=== PATIENT | male | born 1960 ===

== ENCOUNTER 2021-10-22 22:04 | Emergency (ER) | payer OTHER ==
[2021-10-22 22:48] VITALS: BP 102/69; PULSE 80; RESP 20; TEMP 97.3; BMI 22.4
[2021-10-22] MEDS ORDERED: ACETAMINOPHEN 500 MG TABLET (FP) PO ONE (23:56)
[2021-10-23] MEDS ORDERED: ACETAMINOPHEN 325 MG TABLET (FP) ONE (00:01)
== END 2021-10-23 01:21 | disposition home or self-care (01) ==
LOC: JER 22:04
DX: M25.571 Pain in right ankle and joints of right foot (principal)
CPT/HCPCS: 73610-TC-RT-FY; 73630-TC-RT-FY; 99283-25

== ENCOUNTER 2021-10-23 06:58 | Emergency (ER) | payer OTHER ==
[2021-10-23 08:30] VITALS: BP 142/79; PULSE 93; RESP 18; TEMP 98.3; BMI 23.0
[2021-10-23] MEDS ORDERED: ACETAMINOPHEN 500 MG TABLET (FP) PO ONE (09:32)
[2021-10-23] MEDS ORDERED: LIDOCAINE 5% TOPICAL PATCH TP ONE (09:32)
[2021-10-23] MEDS ORDERED: ACETAMINOPHEN 325 MG TABLET (FP) ONE (09:35)
[2021-10-23] MEDS ORDERED: LIDOCAINE 5% TOPICAL PATCH ONE (09:35)
[2021-10-23] MEDS ORDERED: LIDOCAINE PATCH REMOVAL MC SCH (22:00)
== END 2021-10-23 10:23 | disposition home or self-care (01) ==
LOC: JER 06:58
DX: M25.561 Pain in right knee (principal); M25.571 Pain in right ankle and joints of right foot
CPT/HCPCS: 99283-25

== ENCOUNTER 2022-03-07 21:35 | Inpatient (IN) | payer OTHER ==
[2022-03-07] MEDS ORDERED: DEXAMETHASONE SOD PHOSPHATE 10 MG/1 ML VIAL IVPUSH ONE (21:43)
[2022-03-07] MEDS ORDERED: ALBUTEROL SO4 2.5/IPRATROPIUM 0.5 INH SOL 3 ML VIAL.NEB. NEB SCH (21:45)
[2022-03-07] MEDS ORDERED: HALOPERIDOL LACTATE 5 MG/ML IM ONE ×2 (21:53→23:05)
[2022-03-07] MEDS ORDERED: LORazepam 2 MG/ML SDV VIAL IM ONE (22:25)
[2022-03-07] MEDS ORDERED: LORazepam 2 MG/ML SDV VIAL IVPUSH ONE (22:30)
[2022-03-07] MEDS ORDERED: ROCURONIUM BROMIDE 50 MG/5 ML SYRINGE ONE (22:36)
[2022-03-07] MEDS ORDERED: ETOMIDATE 20 MG/10 ML VIAL IVPUSH ONE (22:37)
[2022-03-07 22:56] LABS: BASO % 1.2 % (0-2.0); EOS % 0.1 % (0-4.5); HEMOGLOBIN 14.7 GM/dL (11.7-16.9); LYMPH % 2.9 % (8-40); MCH 30.1 pg (25.7-33.7); MCHC 32.6 g/dl (32.0-35.9); MEAN CELL VOLUME 92.3 fl (80-96); MONO % 7.2 % (3.8-10.2); NEUT % 88.6 % (42.8-82.8); PLATELET COUNT 344 10^3/uL (134-434); RBC 4.88 M/mm3 (4.00-5.60); RDW 14.5 % (11.9-15.9); WHITE BLOOD COUNT 18.2 K/mm3 (4.0-10.0)
[2022-03-07] MEDS: PROPOFOL 1,000,000 MCG/100 ML VIAL IVPB SCH (23:03)
[2022-03-07 23:07] LABS: INR 1.09 (0.83-1.09); PROTHROMBIN TIME (PATIENT) 12.6 SEC (9.7-13.0)
[2022-03-07] MEDS: FENTANYL NS IVPB 500 MCG/100 ML BAG IVPB SCH (23:09)
[2022-03-07 23:10] LABS: ACTIVATED PTT 33.7 SECONDS (25.2-36.5)
[2022-03-07 23:15] LABS: CHLORIDE 105 mmol/L (98-107); SODIUM 144 mmol/L (136-145)
[2022-03-07 23:17] LABS: CALCIUM 9.1 mg/dL (8.5-10.1)
[2022-03-07 23:18] LABS: ALBUMIN 3.5 g/dl (3.4-5.0); ANION GAP 12 MMOL/L (8-16); BLOOD UREA NITROGEN 25.7 mg/dL (7-18); CO2 26 mmol/L (21-32); GLUCOSE,RANDOM 141 mg/dL (74-106)
[2022-03-07] MEDS ORDERED: FUROSEMIDE 40 MG/4 ML INJECTABLE VIAL IVPUSH ONE (23:19)
[2022-03-07 23:21] LABS: SGOT/AST 21 U/L (15-37); SGPT/ALT 34 U/L (13-61)
[2022-03-07 23:23] LABS: BILIRUBIN,TOTAL 0.9 mg/dL (0.2-1)
[2022-03-07 23:24] LABS: ALK PHOS 78 U/L (45-117)
[2022-03-07] MEDS ORDERED: FUROSEMIDE 40 MG/4 ML INJECTABLE VIAL ONE (23:25)
[2022-03-07] MEDS ORDERED: ACETAMINOPHEN 1000 MG/100 ML BAG IVPB ONE (23:29)
[2022-03-07] MEDS ORDERED: ACETAMINOPHEN INJECTION 100 ML IVPB ONE (23:34)
[2022-03-07 23:37] LABS: ARTERIAL BLD GAS O2 SATURATION 86.1 % (95-98); ARTERIAL BLOOD GAS BASE EXCESS -3.8 mmol/L (-2-2); ARTERIAL BLOOD GAS PO2 69.1 mmHg (80-100)
[2022-03-07 23:42] LABS: ALLENS TEST POSITIVE
[2022-03-07 23:43] LABS: VENT MODE V-A/C; VENT RATE 16
[2022-03-07 23:44] LABS: ARTERIAL BLOOD GAS pH 7.113 (7.350-7.450)
[2022-03-07] MEDS ORDERED: NITROGLYCERIN 2% OINTMENT - 1GM PACKET TD ONE (23:52)
[2022-03-08 00:03] LABS: EPI CELLS 1 /uL (0-25.1); HYALINE CASTS 0 /uL (0-3.1); URINE APPEARANCE CLEAR; URINE BACTERIA 2 /uL (0-1359); URINE BILIRUBIN NEGATIVE (NEGATIVE); URINE COLOR YELLOW; URINE GLUCOSE (UA) NEGATIVE (NEGATIVE); URINE KETONE NEGATIVE (NEGATIVE); URINE LEUK ESTERASE NEGATIVE (NEGATIVE); URINE NITRITE NEGATIVE (NEGATIVE); URINE PROTEIN 2+ (NEGATIVE); URINE RBC 12 /uL (0-23.9); URINE UROBILINOGEN 0.2 mg/dL (0.2-1.0); URINE WBC 6 /uL (0-25.8)
[2022-03-08] MEDS ORDERED: NITROGLYCERIN 2% OINTMENT - 1GM PACKET TD ONE (00:04)
[2022-03-08 02:13] LABS: ARTERIAL BLD GAS O2 SATURATION 98.9 % (95-98); ARTERIAL BLOOD GAS BASE EXCESS -4.4 mmol/L (-2-2); ARTERIAL BLOOD GAS PO2 199.4 mmHg (80-100)
[2022-03-08 02:24] LABS: VENT MODE V-A/C; VENT RATE 20
[2022-03-08] MEDS: PHENYLEPHRINE NS PREMIX 50,000 MCG/500 ML BAG IVPB SCH (02:57)
[2022-03-08] MEDS ORDERED: ALBUTEROL SO4 0.083% IH SOL 2.5 MG/3 ML VIAL.NEB. NEB PRN (03:02)
[2022-03-08] MEDS ORDERED: LACTATED RINGERS SOLUTION 1,000 ML/1,000 ML INFUS.BAG IV STA (04:46)
[2022-03-08 04:48] LABS: METHADONE, UR NEGATIVE (NEGATIVE); PHENCYCLIDINE,URINE NEGATIVE (NEGATIVE); URINE AMPHETAMINES NEGATIVE (NEGATIVE); URINE BENZODIAZEPINES NEGATIVE (NEGATIVE)
[2022-03-08 04:49] LABS: OPIATES, URI NEGATIVE (NEGATIVE); URINE BARBITURATES NEGATIVE (NEGATIVE)
[2022-03-08 05:00] LABS: COCAINE, UR POSITIVE (NEGATIVE)
[2022-03-08] MEDS: FENTANYL NS IVPB 500 MCG/100 ML BAG IVPB SCH ×3 (05:18→23:35)
[2022-03-08 06:02] LABS: VENOUS BASE EXCESS -1.9 mmol/L (-2-2); VENOUS O2 SATURATION 80.7 % (70-80); VENOUS PCO2 62.9 mmHg (38-52); VENOUS PH 7.247 (7.310-7.410)
[2022-03-08 06:28] LABS: ARTERIAL BLD GAS O2 SATURATION 99.5 % (95-98); ARTERIAL BLOOD GAS BASE EXCESS 1.4 mmol/L (-2-2); ARTERIAL BLOOD GAS PO2 256.8 mmHg (80-100); ARTERIAL BLOOD GAS pH 7.318 (7.350-7.450)
[2022-03-08 07:09] LABS: VENT MODE V-A/C
[2022-03-08 07:10] LABS: VENT RATE 28
[2022-03-08 08:14] LABS: INR 1.21 (0.83-1.09); PROTHROMBIN TIME (PATIENT) 13.9 SEC (9.7-13.0)
[2022-03-08] MEDS ORDERED: PIPERACILLIN/TAZOB 3.375 GM 3.375 GM in DEXTROSE 5%-WATER - 50 ML IVPB ONE (08:15)
[2022-03-08] MEDS ORDERED: VANCOMYCIN 1 GM/200 ML PREMIX BAG (RESTRICTED TO ID ONLY) IVPB ONE (08:15)
[2022-03-08 08:38] LABS: CHLORIDE 111 mmol/L (98-107); SODIUM 146 mmol/L (136-145)
[2022-03-08] MEDS: IPRATROPIUM BR 0.02% 0.5 MG/2.5 ML VIAL.NEB. NEB SCH ×5 (08:40→20:00)
[2022-03-08 08:44] LABS: ANION GAP 6 MMOL/L (8-16); BLOOD UREA NITROGEN 31.9 mg/dL (7-18); CALCIUM 8.2 mg/dL (8.5-10.1); CO2 30 mmol/L (21-32); GLUCOSE,RANDOM 101 mg/dL (74-106)
[2022-03-08 08:46] LABS: CREATININE 1.3 mg/dL (0.55-1.3); SGOT/AST 39 U/L (15-37)
[2022-03-08 08:47] LABS: BILIRUBIN,DIRECT 0.3 mg/dL (0.0-0.2); BILIRUBIN,TOTAL 0.7 mg/dL (0.2-1); PHOSPHOROUS 4.8 mg/dL (2.5-4.9); SGPT/ALT 47 U/L (13-61); TOT PROT 5.3 g/dl (6.4-8.2)
[2022-03-08 08:49] LABS: ALK PHOS 62 U/L (45-117); BASO % 0.2 % (0-2.0); HEMATOCRIT 38.5 % (35.4-49); HEMOGLOBIN 12.4 GM/dL (11.7-16.9); LYMPH % 5.9 % (8-40); MCH 30.3 pg (25.7-33.7); MCHC 32.2 g/dl (32.0-35.9); MEAN CELL VOLUME 94.1 fl (80-96); MEAN PLT VOLUME 8.3 fl (7.5-11.1); MONO % 10.5 % (3.8-10.2); NEUT % 83.4 % (42.8-82.8); PLATELET COUNT 244 10^3/uL (134-434); RDW 14.3 % (11.9-15.9); WHITE BLOOD COUNT 12.9 K/mm3 (4.0-10.0)
[2022-03-08] MEDS ORDERED: ASPIRIN 325 MG TABLET NGT ONE (08:51)
[2022-03-08] MEDS ORDERED: ATORVASTATIN CA 80 MG TABLET (FP) PO ONE (08:51)
[2022-03-08 09:14] LABS: ALBUMIN 2.7 g/dl (3.4-5.0)
[2022-03-08] MEDS: HEPARIN NA (PORCINE) 5,000 UNITS/ML 1ML VIAL SQ SCH ×3 (09:56→21:16)
[2022-03-08] MEDS ORDERED: PANTOPRAZOLE SOD 40 MG SUSPENSION PACKET NR SCH ×2 (10:00)
[2022-03-08] MEDS ORDERED: ASPIRIN 325 MG TABLET NGT SCH (10:00)
[2022-03-08] MEDS ORDERED: methylPREDNISolone NA SUCC 125 MG/2 ML VIAL IVPUSH ONE (10:28)
[2022-03-08] MEDS ORDERED: LACTATED RINGERS SOLUTION 1,000 ML/1,000 ML INFUS.BAG IV SCH (10:30)
[2022-03-08 10:35] LABS: CHOLESTEROL 95 mg/dL (50-200); TRIGLYCERIDES 67 mg/dL (0-150)
[2022-03-08] MEDS: ALBUTEROL SO4 2.5/IPRATROPIUM 0.5 INH SOL 3 ML VIAL.NEB. NEB SCH ×4 (10:35→20:05)
[2022-03-08 10:36] LABS: LDL CHOLESTEROL (ONLY SJRH) 46 mg/dL (5-100)
[2022-03-08 10:38] LABS: HDL CHOLESTEROL 46 mg/dL (40-60)
[2022-03-08] MEDS: PROPOFOL 1,000,000 MCG/100 ML VIAL IVPB SCH ×2 (11:49→23:35)
[2022-03-08] MEDS: PANTOPRAZOLE SODIUM 40 MG VIAL IVPUSH SCH (11:49)
[2022-03-08] MEDS ORDERED: CEFTRIAXONE 2 GM in DEXTROSE 5%-WATER 50 ML IVPB SCH (13:00)
[2022-03-08] MEDS: AZITHROMYCIN IVPB 500 MG/250 ML BAG IVPB SCH (13:55)
[2022-03-08] MEDS ORDERED: DEXMEDETOMIDINE PREMIX 400 MCG/100 ML BAG IVPB ONE (16:54)
[2022-03-08] MEDS ORDERED: MIDAZOLAM HCL 5 MG/1 ML Single Dose Vial ONE (17:34)
[2022-03-08] MEDS ORDERED: HALOPERIDOL LACTATE 5 MG/ML IM ONE ×2 (17:39→18:10)
[2022-03-08] MEDS: methylPREDNISolone NA SUCC 40 MG/1 ML VIAL IVPUSH SCH (18:05)
[2022-03-08] MEDS ORDERED: MIDAZOLAM HCL 5 MG/1 ML Single Dose Vial IVPUSH ONE (18:10)
[2022-03-08] MEDS: DEXMEDETOMIDINE PREMIX 400 MCG/100 ML BAG IVPB SCH (18:41)
[2022-03-08] MEDS: LORazepam 2 MG/ML SDV VIAL IVPUSH PRN (20:27)
[2022-03-09] MEDS: DEXMEDETOMIDINE PREMIX 400 MCG/100 ML BAG IVPB SCH ×7 (01:05→22:59)
[2022-03-09] MEDS: methylPREDNISolone NA SUCC 40 MG/1 ML VIAL IVPUSH SCH ×3 (01:45→17:40)
[2022-03-09] MEDS: PHENYLEPHRINE NS PREMIX 50,000 MCG/500 ML BAG IVPB SCH (02:55)
[2022-03-09] MEDS: LORazepam 2 MG/ML SDV VIAL IVPUSH PRN ×3 (03:39→22:59)
[2022-03-09] MEDS: HEPARIN NA (PORCINE) 5,000 UNITS/ML 1ML VIAL SQ SCH ×3 (05:12→21:31)
[2022-03-09 07:09] LABS: HEMATOCRIT 41.4 % (35.4-49); HEMOGLOBIN 13.4 GM/dL (11.7-16.9); MCH 30.1 pg (25.7-33.7); MCHC 32.3 g/dl (32.0-35.9); MEAN CELL VOLUME 93.2 fl (80-96); MEAN PLT VOLUME 8.3 fl (7.5-11.1); PLATELET COUNT 234 10^3/uL (134-434); RBC 4.44 M/mm3 (4.00-5.60); RDW 14.6 % (11.9-15.9); WHITE BLOOD COUNT 10.7 K/mm3 (4.0-10.0)
[2022-03-09] MEDS: IPRATROPIUM BR 0.02% 0.5 MG/2.5 ML VIAL.NEB. NEB SCH (07:52)
[2022-03-09] MEDS: ALBUTEROL SO4 2.5/IPRATROPIUM 0.5 INH SOL 3 ML VIAL.NEB. NEB SCH ×4 (07:53→20:35)
[2022-03-09] MEDS ORDERED: FUROSEMIDE 40 MG/4 ML INJECTABLE VIAL IVPUSH ONE (08:30)
[2022-03-09 08:55] LABS: CALCIUM 8.8 mg/dL (8.5-10.1)
[2022-03-09 08:56] LABS: ALBUMIN 2.7 g/dl (3.4-5.0); BLOOD UREA NITROGEN 40.9 mg/dL (7-18); MAGNESIUM 2.3 mg/dL (1.8-2.4)
[2022-03-09 08:59] LABS: CREATININE 1.4 mg/dL (0.55-1.3); PHOSPHOROUS 4.6 mg/dL (2.5-4.9); TOT PROT 5.7 g/dl (6.4-8.2)
[2022-03-09 09:01] LABS: BILIRUBIN,TOTAL 0.4 mg/dL (0.2-1)
[2022-03-09] MEDS: AZITHROMYCIN IVPB 500 MG/250 ML BAG IVPB SCH (09:39)
[2022-03-09] MEDS: CEFTRIAXONE 2 GM in DEXTROSE 5%-WATER 100 ML IVPB SCH (09:39)
[2022-03-09] MEDS: PANTOPRAZOLE SODIUM 40 MG VIAL IVPUSH SCH (09:40)
[2022-03-09 09:50] LABS: ARTERIAL BLD GAS O2 SATURATION 97.6 % (95-98); ARTERIAL BLOOD GAS BASE EXCESS 2.4 mmol/L (-2-2); ARTERIAL BLOOD GAS PO2 103.5 mmHg (80-100)
[2022-03-09 09:53] LABS: ALLENS TEST POSITIVE
[2022-03-09] MEDS: ACETAMINOPHEN 1000 MG/100 ML BAG IVPB PRN ×2 (14:57→21:31)
[2022-03-09] MEDS: FENTANYL NS IVPB 500 MCG/100 ML BAG IVPB SCH (23:38)
[2022-03-09] MEDS: PROPOFOL 1,000,000 MCG/100 ML VIAL IVPB SCH (23:38)
[2022-03-10] MEDS: LORazepam 2 MG/ML SDV VIAL IVPUSH PRN ×5 (01:14→20:03)
[2022-03-10] MEDS: DEXMEDETOMIDINE PREMIX 400 MCG/100 ML BAG IVPB SCH ×4 (02:06→21:18)
[2022-03-10] MEDS: methylPREDNISolone NA SUCC 40 MG/1 ML VIAL IVPUSH SCH ×3 (02:14→17:08)
[2022-03-10] MEDS: HEPARIN NA (PORCINE) 5,000 UNITS/ML 1ML VIAL SQ SCH ×3 (05:45→21:40)
[2022-03-10] MEDS: PHENYLEPHRINE NS PREMIX 50,000 MCG/500 ML BAG IVPB SCH (05:45)
[2022-03-10] MEDS: ACETAMINOPHEN 1000 MG/100 ML BAG IVPB PRN ×2 (05:59→12:30)
[2022-03-10] MEDS ORDERED: FUROSEMIDE 40 MG/4 ML INJECTABLE VIAL IVPUSH ONE (07:31)
[2022-03-10] MEDS: ALBUTEROL SO4 2.5/IPRATROPIUM 0.5 INH SOL 3 ML VIAL.NEB. NEB SCH ×4 (08:05→20:40)
[2022-03-10] MEDS ORDERED: MAGNESIUM SULF 50% (8.12 MEQ/2 ML-1 GM VIAL) IVPB ONE (08:38)
[2022-03-10 08:41] LABS: EPI CELLS 3 /uL (0-25.1); HYALINE CASTS 2 /uL (0-3.1); PH,URINE 5.5 (5.0-8.0); URINE APPEARANCE CLEAR; URINE BACTERIA 5 /uL (0-1359); URINE BILIRUBIN NEGATIVE (NEGATIVE); URINE COLOR YELLOW; URINE GLUCOSE (UA) NEGATIVE (NEGATIVE); URINE KETONE NEGATIVE (NEGATIVE); URINE LEUK ESTERASE NEGATIVE (NEGATIVE); URINE NITRITE NEGATIVE (NEGATIVE); URINE PROTEIN 2+ (NEGATIVE); URINE RBC 7 /uL (0-23.9); URINE UROBILINOGEN 0.2 mg/dL (0.2-1.0); URINE WBC 2 /uL (0-25.8)
[2022-03-10 08:49] LABS: ARTERIAL BLOOD GAS BASE EXCESS 4.6 mmol/L (-2-2); ARTERIAL BLOOD GAS PO2 62.8 mmHg (80-100); ARTERIAL BLOOD GAS pH 7.452 (7.350-7.450)
[2022-03-10 08:52] LABS: ALLENS TEST POSITIVE
[2022-03-10] MEDS: PANTOPRAZOLE SODIUM 40 MG VIAL IVPUSH SCH (10:00)
[2022-03-10] MEDS ORDERED: SACUBITRIL/VALSARTAN 24 MG-26 MG TABLET PO SCH (10:00)
[2022-03-10] MEDS: AZITHROMYCIN IVPB 500 MG/250 ML BAG IVPB SCH (10:01)
[2022-03-10] MEDS: CEFTRIAXONE 2 GM in DEXTROSE 5%-WATER 100 ML IVPB SCH (10:01)
[2022-03-10 13:10] LABS: HEMATOCRIT 43.3 % (35.4-49); MCHC 32.4 g/dl (32.0-35.9); MEAN CELL VOLUME 92.7 fl (80-96); MEAN PLT VOLUME 8.2 fl (7.5-11.1); PLATELET COUNT 266 10^3/uL (134-434); RBC 4.67 M/mm3 (4.00-5.60); RDW 14.4 % (11.9-15.9); WHITE BLOOD COUNT 11.7 K/mm3 (4.0-10.0)
[2022-03-10 13:35] LABS: BLOOD UREA NITROGEN 57.2 mg/dL (7-18); CALCIUM 8.9 mg/dL (8.5-10.1); MAGNESIUM 2.5 mg/dL (1.8-2.4)
[2022-03-10 13:38] LABS: CREATININE 1.7 mg/dL (0.55-1.3); PHOSPHOROUS 4.7 mg/dL (2.5-4.9)
[2022-03-10 13:40] LABS: BILIRUBIN,TOTAL 0.4 mg/dL (0.2-1); TOT PROT 6.4 g/dl (6.4-8.2)
[2022-03-10] MEDS: FUROSEMIDE 40 MG/4 ML INJECTABLE VIAL IVPUSH SCH (14:50)
[2022-03-10] MEDS ORDERED: ENALAPRILAT DIHYDRATE 1.25 MG/1 ML VIAL IVPB SCH (15:00)
[2022-03-10] MEDS ORDERED: hydrALAZINE HCL 20 MG/ML VIAL IVPUSH PRN (22:23)
[2022-03-10] MEDS: SACUBITRIL/VALSARTAN 24 MG-26 MG TABLET PO SCH (23:31)
[2022-03-10] MEDS: FENTANYL NS IVPB 500 MCG/100 ML BAG IVPB SCH (23:31)
[2022-03-11] MEDS: methylPREDNISolone NA SUCC 40 MG/1 ML VIAL IVPUSH SCH ×2 (01:38→10:03)
[2022-03-11] MEDS: DEXMEDETOMIDINE PREMIX 400 MCG/100 ML BAG IVPB SCH ×3 (01:39→21:08)
[2022-03-11] MEDS: PHENYLEPHRINE NS PREMIX 50,000 MCG/500 ML BAG IVPB SCH (05:38)
[2022-03-11] MEDS: FUROSEMIDE 40 MG/4 ML INJECTABLE VIAL IVPUSH SCH ×2 (06:03→14:21)
[2022-03-11] MEDS: HEPARIN NA (PORCINE) 5,000 UNITS/ML 1ML VIAL SQ SCH ×3 (06:03→21:08)
[2022-03-11] MEDS ORDERED: ACETAMINOPHEN 1000 MG/100 ML BAG IVPB ONE (06:08)
[2022-03-11 07:38] LABS: HEMATOCRIT 45.7 % (35.4-49); HEMOGLOBIN 14.8 GM/dL (11.7-16.9); MCH 29.9 pg (25.7-33.7); MCHC 32.4 g/dl (32.0-35.9); MEAN CELL VOLUME 92.3 fl (80-96); MEAN PLT VOLUME 8.7 fl (7.5-11.1); PLATELET COUNT 234 10^3/uL (134-434); RBC 4.95 M/mm3 (4.00-5.60); RDW 14.5 % (11.9-15.9); WHITE BLOOD COUNT 9.9 K/mm3 (4.0-10.0)
[2022-03-11 08:00] LABS: BLOOD UREA NITROGEN 62.9 mg/dL (7-18); CALCIUM 8.7 mg/dL (8.5-10.1); MAGNESIUM 2.5 mg/dL (1.8-2.4)
[2022-03-11 08:03] LABS: CREATININE 1.7 mg/dL (0.55-1.3); PHOSPHOROUS 3.5 mg/dL (2.5-4.9)
[2022-03-11 08:05] LABS: TOT PROT 6.2 g/dl (6.4-8.2)
[2022-03-11] MEDS: ALBUTEROL SO4 2.5/IPRATROPIUM 0.5 INH SOL 3 ML VIAL.NEB. NEB SCH ×4 (08:05→20:43)
[2022-03-11 08:06] LABS: BILIRUBIN,TOTAL 0.6 mg/dL (0.2-1)
[2022-03-11] MEDS: PANTOPRAZOLE SODIUM 40 MG VIAL IVPUSH SCH (09:44)
[2022-03-11] MEDS: CEFTRIAXONE 2 GM in DEXTROSE 5%-WATER 100 ML IVPB SCH (09:44)
[2022-03-11] MEDS: AZITHROMYCIN IVPB 500 MG/250 ML BAG IVPB SCH (09:46)
[2022-03-11] MEDS ORDERED: ACETAMINOPHEN INJECTION 100 ML IVPB ONE (10:58)
[2022-03-11] MEDS ORDERED: AMINO ACIDS 4.25%/D5W 1,000 ML IV SCH (12:00)
[2022-03-11] MEDS: ACETAMINOPHEN 1000 MG/100 ML BAG IVPB PRN ×2 (14:39→21:09)
[2022-03-11] MEDS: ASPIRIN 81 MG CHEWABLE TABLETS PO SCH (17:03)
[2022-03-11] MEDS: SACUBITRIL/VALSARTAN 24 MG-26 MG TABLET PO SCH ×2 (17:03→21:08)
[2022-03-11] MEDS: LORazepam 2 MG/ML SDV VIAL IVPUSH PRN (17:04)
[2022-03-11] MEDS: AMINO ACIDS 4.25%/D5W 1,000 ML IV SCH (17:49)
[2022-03-11] MEDS: PIPERACILLIN/TAZOB 3.375 GM 3.375 GM in DEXTROSE 5%-WATER - 50 ML IVPB SCH (19:52)
[2022-03-12] MEDS: DEXMEDETOMIDINE PREMIX 400 MCG/100 ML BAG IVPB SCH ×4 (02:24→21:34)
[2022-03-12] MEDS: PIPERACILLIN/TAZOB 3.375 GM 3.375 GM in DEXTROSE 5%-WATER - 50 ML IVPB SCH ×3 (02:24→18:03)
[2022-03-12] MEDS: FUROSEMIDE 40 MG/4 ML INJECTABLE VIAL IVPUSH SCH ×2 (05:47→14:32)
[2022-03-12] MEDS: HEPARIN NA (PORCINE) 5,000 UNITS/ML 1ML VIAL SQ SCH ×3 (05:47→21:33)
[2022-03-12] MEDS: AMINO ACIDS 4.25%/D5W 1,000 ML IV SCH ×2 (06:18→17:29)
[2022-03-12] MEDS: ALBUTEROL SO4 2.5/IPRATROPIUM 0.5 INH SOL 3 ML VIAL.NEB. NEB SCH ×4 (07:55→20:05)
[2022-03-12] MEDS: LORazepam 2 MG/ML SDV VIAL IVPUSH PRN ×2 (08:25→15:56)
[2022-03-12] MEDS: SACUBITRIL/VALSARTAN 24 MG-26 MG TABLET PO SCH ×2 (10:49→21:34)
[2022-03-12] MEDS: PANTOPRAZOLE SODIUM 40 MG VIAL IVPUSH SCH (10:49)
[2022-03-12] MEDS: ASPIRIN 81 MG CHEWABLE TABLETS PO SCH (10:49)
[2022-03-12 15:35] LABS: HEMATOCRIT 54.2 % (35.4-49); MCH 29.5 pg (25.7-33.7); MCHC 31.4 g/dl (32.0-35.9); MEAN CELL VOLUME 93.9 fl (80-96); MEAN PLT VOLUME 8.4 fl (7.5-11.1); PLATELET COUNT 223 10^3/uL (134-434); RBC 5.77 M/mm3 (4.00-5.60); RDW 14.2 % (11.9-15.9); WHITE BLOOD COUNT 17.5 K/mm3 (4.0-10.0)
[2022-03-12 15:58] LABS: BLOOD UREA NITROGEN 65.9 mg/dL (7-18); MAGNESIUM 2.7 mg/dL (1.8-2.4)
[2022-03-12 16:00] LABS: CREATININE 1.9 mg/dL (0.55-1.3); PHOSPHOROUS 2.9 mg/dL (2.5-4.9)
[2022-03-12] MEDS ORDERED: DEXTROSE 5%-0.45% SALINE 1,000 ML IV SCH (19:15)
[2022-03-13] MEDS: PIPERACILLIN/TAZOB 3.375 GM 3.375 GM in DEXTROSE 5%-WATER - 50 ML IVPB SCH ×3 (02:26→17:59)
[2022-03-13] MEDS: DEXMEDETOMIDINE PREMIX 400 MCG/100 ML BAG IVPB SCH ×3 (02:26→21:03)
[2022-03-13] MEDS: HEPARIN NA (PORCINE) 5,000 UNITS/ML 1ML VIAL SQ SCH ×3 (05:52→21:03)
[2022-03-13] MEDS: FUROSEMIDE 40 MG/4 ML INJECTABLE VIAL IVPUSH SCH ×2 (05:52→14:01)
[2022-03-13 07:58] LABS: HEMATOCRIT 56.5 % (35.4-49); HEMOGLOBIN 17.9 GM/dL (11.7-16.9); MCH 29.7 pg (25.7-33.7); MCHC 31.7 g/dl (32.0-35.9); MEAN CELL VOLUME 93.7 fl (80-96); MEAN PLT VOLUME 9.5 fl (7.5-11.1); PLATELET COUNT 207 10^3/uL (134-434); RBC 6.02 M/mm3 (4.00-5.60); RDW 14.7 % (11.9-15.9); WHITE BLOOD COUNT 19.1 K/mm3 (4.0-10.0)
[2022-03-13] MEDS ORDERED: ACETAMINOPHEN 1000 MG/100 ML BAG IVPB ONE (08:03)
[2022-03-13] MEDS ORDERED: ACETAMINOPHEN INJECTION 100 ML IVPB ONE (08:06)
[2022-03-13 08:13] LABS: CHLORIDE 114 mmol/L (98-107)
[2022-03-13 08:31] LABS: CALCIUM 9.2 mg/dL (8.5-10.1)
[2022-03-13 08:33] LABS: ALBUMIN 3.2 g/dl (3.4-5.0); BLOOD UREA NITROGEN 69.1 mg/dL (7-18); CO2 38 mmol/L (21-32); GLUCOSE,RANDOM 156 mg/dL (74-106); MAGNESIUM 3.1 mg/dL (1.8-2.4)
[2022-03-13] MEDS: ALBUTEROL SO4 2.5/IPRATROPIUM 0.5 INH SOL 3 ML VIAL.NEB. NEB SCH ×4 (08:33→20:20)
[2022-03-13 08:34] LABS: PHOSPHOROUS 4.1 mg/dL (2.5-4.9); SGPT/ALT 51 U/L (13-61)
[2022-03-13 08:35] LABS: CREATININE 2.1 mg/dL (0.55-1.3); SGOT/AST 45 U/L (15-37)
[2022-03-13 08:36] LABS: BILIRUBIN,TOTAL 0.9 mg/dL (0.2-1); TOT PROT 6.8 g/dl (6.4-8.2)
[2022-03-13 08:37] LABS: ALK PHOS 51 U/L (45-117)
[2022-03-13 08:41] LABS: ANION GAP 10 MMOL/L (8-16); SODIUM 162 mmol/L (136-145)
[2022-03-13] MEDS: SACUBITRIL/VALSARTAN 24 MG-26 MG TABLET PO SCH ×2 (09:01→21:03)
[2022-03-13] MEDS: ASPIRIN 81 MG CHEWABLE TABLETS PO SCH (09:01)
[2022-03-13] MEDS: PANTOPRAZOLE SODIUM 40 MG VIAL IVPUSH SCH (09:01)
[2022-03-13] MEDS ORDERED: KCL 10 MEQ IVPB 10 MEQ/100 ML INFUS.BAG IVPB SCH (12:00)
[2022-03-13] MEDS ORDERED: SODIUM CHLORIDE 1,000 ML IV STA (12:10)
[2022-03-13] MEDS ORDERED: NOREPINEPHRINE BITARTRATE 4 MG/4 ML ML IV ONE (12:42)
[2022-03-13] MEDS: NOREPINEPHRINE BITARTRATE/D5W 8 MG/250 ML BAG IVPB SCH (12:52)
[2022-03-13] MEDS: DEXTROSE 5%-WATER - 1,000 ML with POTASSIUM CHLORIDE 20 MEQ IV SCH (15:35)
[2022-03-13 23:45] LABS: BLOOD UREA NITROGEN 77.9 mg/dL (7-18); CALCIUM 8.2 mg/dL (8.5-10.1); CREATININE 2.2 mg/dL (0.55-1.3)
[2022-03-14] MEDS: LORazepam 2 MG/ML SDV VIAL IVPUSH PRN (02:51)
[2022-03-14] MEDS: PIPERACILLIN/TAZOB 3.375 GM 3.375 GM in DEXTROSE 5%-WATER - 50 ML IVPB SCH ×3 (02:51→18:25)
[2022-03-14] MEDS: DEXMEDETOMIDINE PREMIX 400 MCG/100 ML BAG IVPB SCH ×4 (02:51→23:15)
[2022-03-14] MEDS: DEXTROSE 5%-WATER - 1,000 ML with POTASSIUM CHLORIDE 20 MEQ IV SCH ×3 (05:44→14:52)
[2022-03-14] MEDS: HEPARIN NA (PORCINE) 5,000 UNITS/ML 1ML VIAL SQ SCH ×3 (05:45→22:11)
[2022-03-14] MEDS: ALBUTEROL SO4 2.5/IPRATROPIUM 0.5 INH SOL 3 ML VIAL.NEB. NEB SCH (07:25)
[2022-03-14 08:22] LABS: ALBUMIN 2.8 g/dl (3.4-5.0); CALCIUM 8.4 mg/dL (8.5-10.1)
[2022-03-14 08:23] LABS: BLOOD UREA NITROGEN 68.7 mg/dL (7-18)
[2022-03-14 08:26] LABS: CREATININE 1.9 mg/dL (0.55-1.3)
[2022-03-14 08:27] LABS: BILIRUBIN,TOTAL 0.9 mg/dL (0.2-1); TOT PROT 6.1 g/dl (6.4-8.2)
[2022-03-14] MEDS ORDERED: ALBUTEROL SO4 0.083% IH SOL 2.5 MG/3 ML VIAL.NEB. NEB PRN (09:29)
[2022-03-14] MEDS: ASPIRIN 81 MG CHEWABLE TABLETS PO SCH (10:49)
[2022-03-14] MEDS: PANTOPRAZOLE SODIUM 40 MG VIAL IVPUSH SCH (10:49)
[2022-03-14] MEDS: SACUBITRIL/VALSARTAN 24 MG-26 MG TABLET PO SCH ×2 (10:51→22:11)
[2022-03-14] MEDS: MIDODRINE HCL 2.5 MG TABLET PO SCH ×2 (13:18→17:58)
[2022-03-14] MEDS: NOREPINEPHRINE BITARTRATE/D5W 8 MG/250 ML BAG IVPB SCH (14:51)
[2022-03-14] MEDS ORDERED: DEXTROSE 5%-WATER - 1,000 ML with POTASSIUM CHLORIDE 20 MEQ IV SCH (14:54)
[2022-03-14] MEDS ORDERED: KCL 10 MEQ IVPB 10 MEQ/100 ML INFUS.BAG IVPB SCH (15:00)
[2022-03-14] MEDS: POTASSIUM CHLORIDE 20 MEQ in DEXTROSE 5%-WATER - 1,000 ML IV SCH (16:00)
[2022-03-14 17:59] LABS: EPI CELLS 28 /uL (0-25.1); HYALINE CASTS 3 /uL (0-3.1); URINE APPEARANCE CLOUDY; URINE BACTERIA 27 /uL (0-1359); URINE BILIRUBIN NEGATIVE (NEGATIVE); URINE COLOR YELLOW; URINE GLUCOSE (UA) TRACE (NEGATIVE); URINE KETONE NEGATIVE (NEGATIVE); URINE LEUK ESTERASE TRACE (NEGATIVE); URINE NITRITE NEGATIVE (NEGATIVE); URINE PROTEIN 1+ (NEGATIVE); URINE RBC 7 /uL (0-23.9); URINE UROBILINOGEN 0.2 mg/dL (0.2-1.0); URINE WBC 58 /uL (0-25.8)
[2022-03-14 22:43] LABS: URINE CRYSTALS MANY /hpf
[2022-03-15] MEDS: POTASSIUM CHLORIDE 20 MEQ in DEXTROSE 5%-WATER - 1,000 ML IV SCH ×4 (01:36→16:17)
[2022-03-15] MEDS: PIPERACILLIN/TAZOB 3.375 GM 3.375 GM in DEXTROSE 5%-WATER - 50 ML IVPB SCH ×3 (02:45→18:00)
[2022-03-15] MEDS: HEPARIN NA (PORCINE) 5,000 UNITS/ML 1ML VIAL SQ SCH ×3 (06:16→21:10)
[2022-03-15] MEDS: DEXMEDETOMIDINE PREMIX 400 MCG/100 ML BAG IVPB SCH ×2 (06:39→21:09)
[2022-03-15] MEDS: SACUBITRIL/VALSARTAN 24 MG-26 MG TABLET PO SCH ×2 (10:57→21:09)
[2022-03-15] MEDS: ASPIRIN 81 MG CHEWABLE TABLETS PO SCH (10:57)
[2022-03-15] MEDS: PANTOPRAZOLE SODIUM 40 MG VIAL IVPUSH SCH (10:57)
[2022-03-15] MEDS: MIDODRINE HCL 2.5 MG TABLET PO SCH ×3 (10:57→17:24)
[2022-03-15 12:04] LABS: BASO % 0.5 % (0-2.0); EOS % 2.3 % (0-4.5); HEMATOCRIT 47.3 % (35.4-49); LYMPH % 7.5 % (8-40); MCH 29.4 pg (25.7-33.7); MCHC 31.6 g/dl (32.0-35.9); MEAN CELL VOLUME 93.1 fl (80-96); MEAN PLT VOLUME 10.3 fl (7.5-11.1); MONO % 4.7 % (3.8-10.2); PLATELET COUNT 136 10^3/uL (134-434); RBC 5.08 M/mm3 (4.00-5.60); RDW 14.2 % (11.9-15.9); WHITE BLOOD COUNT 16.8 K/mm3 (4.0-10.0)
[2022-03-15 12:37] LABS: ALBUMIN 2.4 g/dl (3.4-5.0); BLOOD UREA NITROGEN 45.5 mg/dL (7-18)
[2022-03-15 12:40] LABS: CREATININE 1.4 mg/dL (0.55-1.3)
[2022-03-15 12:42] LABS: BILIRUBIN,TOTAL 0.8 mg/dL (0.2-1); TOT PROT 5.3 g/dl (6.4-8.2)
[2022-03-15] MEDS: NOREPINEPHRINE BITARTRATE/D5W 8 MG/250 ML BAG IVPB SCH (15:31)
[2022-03-15] MEDS: LORazepam 2 MG/ML SDV VIAL IM SCH (18:26)
[2022-03-16] MEDS: LORazepam 2 MG/ML SDV VIAL IM SCH ×2 (01:15→06:54)
[2022-03-16] MEDS: PIPERACILLIN/TAZOB 3.375 GM 3.375 GM in DEXTROSE 5%-WATER - 50 ML IVPB SCH ×3 (02:03→18:39)
[2022-03-16] MEDS: DEXMEDETOMIDINE PREMIX 400 MCG/100 ML BAG IVPB SCH (04:40)
[2022-03-16] MEDS: HEPARIN NA (PORCINE) 5,000 UNITS/ML 1ML VIAL SQ SCH ×3 (05:28→21:09)
[2022-03-16] MEDS: POTASSIUM CHLORIDE 20 MEQ in DEXTROSE 5%-WATER - 1,000 ML IV SCH (06:21)
[2022-03-16] MEDS: ASPIRIN 81 MG CHEWABLE TABLETS PO SCH (10:09)
[2022-03-16] MEDS: PANTOPRAZOLE SODIUM 40 MG VIAL IVPUSH SCH (10:09)
[2022-03-16] MEDS: MIDODRINE HCL 2.5 MG TABLET PO SCH ×3 (10:09→18:39)
[2022-03-16] MEDS: SACUBITRIL/VALSARTAN 24 MG-26 MG TABLET PO SCH ×2 (10:09→21:09)
[2022-03-16] MEDS ORDERED: LORazepam 2 MG/ML SDV VIAL IM PRN (11:38)
[2022-03-16] MEDS: guaiFENesin 600 MG TABLET.ER (FP) PO SCH (22:35)
[2022-03-17] MEDS: PIPERACILLIN/TAZOB 3.375 GM 3.375 GM in DEXTROSE 5%-WATER - 50 ML IVPB SCH ×4 (03:29→20:00)
[2022-03-17] MEDS: HEPARIN NA (PORCINE) 5,000 UNITS/ML 1ML VIAL SQ SCH ×3 (06:37→22:07)
[2022-03-17 06:59] LABS: CALCIUM 8.2 mg/dL (8.5-10.1)
[2022-03-17 07:00] LABS: ALBUMIN 2.4 g/dl (3.4-5.0); BLOOD UREA NITROGEN 26.7 mg/dL (7-18)
[2022-03-17 07:03] LABS: CREATININE 0.8 mg/dL (0.55-1.3)
[2022-03-17 07:04] LABS: BILIRUBIN,TOTAL 0.9 mg/dL (0.2-1); TOT PROT 5.4 g/dl (6.4-8.2)
[2022-03-17] MEDS: guaiFENesin 600 MG TABLET.ER (FP) PO SCH ×2 (10:20→22:07)
[2022-03-17] MEDS: SACUBITRIL/VALSARTAN 24 MG-26 MG TABLET PO SCH ×2 (10:20→23:53)
[2022-03-17] MEDS: MIDODRINE HCL 2.5 MG TABLET PO SCH ×3 (10:20→18:03)
[2022-03-17] MEDS: ASPIRIN 81 MG CHEWABLE TABLETS PO SCH (10:20)
[2022-03-17] MEDS: PANTOPRAZOLE SODIUM 40 MG VIAL IVPUSH SCH (10:35)
[2022-03-17] MEDS ORDERED: LORazepam 2 MG/ML SDV VIAL IM PRN (18:57)
[2022-03-17] MEDS ORDERED: ALBUTEROL SO4 0.083% IH SOL 2.5 MG/3 ML VIAL.NEB. NEB PRN (18:57)
[2022-03-17] MEDS: hydrALAZINE HCL 10 MG TABLET PO SCH (22:07)
[2022-03-18] MEDS: PIPERACILLIN/TAZOB 3.375 GM 3.375 GM in DEXTROSE 5%-WATER - 50 ML IVPB SCH ×2 (02:36→13:10)
[2022-03-18] MEDS: HEPARIN NA (PORCINE) 5,000 UNITS/ML 1ML VIAL SQ SCH ×3 (05:54→21:37)
[2022-03-18] MEDS: hydrALAZINE HCL 10 MG TABLET PO SCH ×3 (05:54→21:36)
[2022-03-18] MEDS: PANTOPRAZOLE SODIUM 40 MG VIAL IVPUSH SCH (09:12)
[2022-03-18] MEDS: guaiFENesin 600 MG TABLET.ER (FP) PO SCH ×2 (10:36→21:36)
[2022-03-18] MEDS: ASPIRIN 81 MG CHEWABLE TABLETS PO SCH (10:36)
[2022-03-18] MEDS: MIDODRINE HCL 2.5 MG TABLET PO SCH ×3 (10:36→17:09)
[2022-03-18] MEDS: SACUBITRIL/VALSARTAN 24 MG-26 MG TABLET PO SCH ×2 (10:36→21:36)
[2022-03-18 10:57] LABS: BASO % 0.3 % (0-2.0); EOS % 2.2 % (0-4.5); HEMATOCRIT 42.5 % (35.4-49); HEMOGLOBIN 13.7 GM/dL (11.7-16.9); LYMPH % 7.9 % (8-40); MCH 29.3 pg (25.7-33.7); MCHC 32.3 g/dl (32.0-35.9); MEAN CELL VOLUME 90.8 fl (80-96); MEAN PLT VOLUME 9.7 fl (7.5-11.1); MONO % 6.4 % (3.8-10.2); NEUT % 83.2 % (42.8-82.8); PLATELET COUNT 227 10^3/uL (134-434); RBC 4.68 M/mm3 (4.00-5.60); RDW 14.3 % (11.9-15.9); WHITE BLOOD COUNT 14.5 K/mm3 (4.0-10.0)
[2022-03-18 11:10] LABS: ALBUMIN 2.4 g/dl (3.4-5.0); BLOOD UREA NITROGEN 22.3 mg/dL (7-18); CALCIUM 8.5 mg/dL (8.5-10.1)
[2022-03-18 11:11] LABS: MAGNESIUM 1.8 mg/dL (1.8-2.4)
[2022-03-18 11:13] LABS: CREATININE 0.8 mg/dL (0.55-1.3)
[2022-03-18 11:15] LABS: BILIRUBIN,TOTAL 0.5 mg/dL (0.2-1); TOT PROT 5.5 g/dl (6.4-8.2)
[2022-03-18] MEDS: AMOX TR/POT CLAV 875MG/125MG TABLETS (FP) PO SCH (17:09)
[2022-03-19] MEDS: hydrALAZINE HCL 10 MG TABLET PO SCH ×3 (05:54→21:28)
[2022-03-19] MEDS: HEPARIN NA (PORCINE) 5,000 UNITS/ML 1ML VIAL SQ SCH ×3 (06:14→21:28)
[2022-03-19] MEDS: AMOX TR/POT CLAV 875MG/125MG TABLETS (FP) PO SCH ×2 (09:00→18:03)
[2022-03-19] MEDS: MIDODRINE HCL 2.5 MG TABLET PO SCH ×3 (09:15→18:03)
[2022-03-19] MEDS: guaiFENesin 600 MG TABLET.ER (FP) PO SCH ×2 (09:16→21:28)
[2022-03-19] MEDS: ASPIRIN 81 MG CHEWABLE TABLETS PO SCH (09:16)
[2022-03-19] MEDS: SACUBITRIL/VALSARTAN 24 MG-26 MG TABLET PO SCH ×2 (09:16→21:28)
[2022-03-19] MEDS: PANTOPRAZOLE SODIUM 40 MG VIAL IVPUSH SCH (09:17)
[2022-03-19 10:20] LABS: BASO % 0.7 % (0-2.0); EOS % 2.9 % (0-4.5); HEMATOCRIT 44.6 % (35.4-49); HEMOGLOBIN 14.6 GM/dL (11.7-16.9); LYMPH % 9.9 % (8-40); MCH 29.9 pg (25.7-33.7); MCHC 32.7 g/dl (32.0-35.9); MEAN CELL VOLUME 91.2 fl (80-96); MEAN PLT VOLUME 9.4 fl (7.5-11.1); MONO % 8.8 % (3.8-10.2); NEUT % 77.7 % (42.8-82.8); PLATELET COUNT 272 10^3/uL (134-434); RBC 4.89 M/mm3 (4.00-5.60); RDW 14.1 % (11.9-15.9); WHITE BLOOD COUNT 11.7 K/mm3 (4.0-10.0)
[2022-03-19 10:37] LABS: CALCIUM 8.3 mg/dL (8.5-10.1)
[2022-03-19 10:38] LABS: ALBUMIN 2.3 g/dl (3.4-5.0); BLOOD UREA NITROGEN 19.9 mg/dL (7-18); MAGNESIUM 1.8 mg/dL (1.8-2.4)
[2022-03-19 10:41] LABS: CREATININE 0.9 mg/dL (0.55-1.3)
[2022-03-19 10:42] LABS: BILIRUBIN,TOTAL 0.5 mg/dL (0.2-1); TOT PROT 5.3 g/dl (6.4-8.2)
[2022-03-20] MEDS: hydrALAZINE HCL 10 MG TABLET PO SCH ×3 (05:37→21:08)
[2022-03-20] MEDS: HEPARIN NA (PORCINE) 5,000 UNITS/ML 1ML VIAL SQ SCH ×3 (05:38→21:11)
[2022-03-20] MEDS: AMOX TR/POT CLAV 875MG/125MG TABLETS (FP) PO SCH ×3 (08:23→17:15)
[2022-03-20] MEDS: PANTOPRAZOLE SODIUM 40 MG VIAL IVPUSH SCH (09:42)
[2022-03-20] MEDS: ASPIRIN 81 MG CHEWABLE TABLETS PO SCH (09:45)
[2022-03-20] MEDS: guaiFENesin 600 MG TABLET.ER (FP) PO SCH ×2 (09:45→21:08)
[2022-03-20] MEDS: SACUBITRIL/VALSARTAN 24 MG-26 MG TABLET PO SCH ×2 (09:45→21:08)
[2022-03-20] MEDS: MIDODRINE HCL 2.5 MG TABLET PO SCH ×3 (09:46→17:16)
[2022-03-20 11:43] VITALS: BMI 25.0
[2022-03-21] MEDS: HEPARIN NA (PORCINE) 5,000 UNITS/ML 1ML VIAL SQ SCH ×3 (05:55→21:30)
[2022-03-21] MEDS: hydrALAZINE HCL 10 MG TABLET PO SCH ×3 (05:57→21:30)
[2022-03-21] MEDS: AMOX TR/POT CLAV 875MG/125MG TABLETS (FP) PO SCH (08:39)
[2022-03-21] MEDS: PANTOPRAZOLE SODIUM 40 MG VIAL IVPUSH SCH ×2 (09:25→09:27)
[2022-03-21] MEDS: ASPIRIN 81 MG CHEWABLE TABLETS PO SCH (09:25)
[2022-03-21] MEDS: guaiFENesin 600 MG TABLET.ER (FP) PO SCH ×2 (09:26→21:31)
[2022-03-21] MEDS: SACUBITRIL/VALSARTAN 24 MG-26 MG TABLET PO SCH ×2 (09:26→21:30)
[2022-03-21] MEDS: MIDODRINE HCL 2.5 MG TABLET PO SCH ×3 (09:26→17:19)
[2022-03-21 10:28] LABS: BASO % 1.2 % (0-2.0); EOS % 2.6 % (0-4.5); HEMATOCRIT 44.4 % (35.4-49); HEMOGLOBIN 14.5 GM/dL (11.7-16.9); LYMPH % 13.9 % (8-40); MCH 29.7 pg (25.7-33.7); MCHC 32.6 g/dl (32.0-35.9); MEAN CELL VOLUME 91.2 fl (80-96); MEAN PLT VOLUME 8.6 fl (7.5-11.1); MONO % 9.6 % (3.8-10.2); NEUT % 72.7 % (42.8-82.8); PLATELET COUNT 369 10^3/uL (134-434); RBC 4.86 M/mm3 (4.00-5.60); RDW 13.9 % (11.9-15.9); WHITE BLOOD COUNT 9.4 K/mm3 (4.0-10.0)
[2022-03-21 11:01] LABS: CALCIUM 8.8 mg/dL (8.5-10.1)
[2022-03-21 11:02] LABS: ALBUMIN 2.4 g/dl (3.4-5.0); BLOOD UREA NITROGEN 16.8 mg/dL (7-18); MAGNESIUM 1.7 mg/dL (1.8-2.4)
[2022-03-21 11:05] LABS: CREATININE 0.8 mg/dL (0.55-1.3)
[2022-03-21 11:07] LABS: BILIRUBIN,TOTAL 0.4 mg/dL (0.2-1); TOT PROT 5.5 g/dl (6.4-8.2)
[2022-03-21] MEDS ORDERED: MAGNESIUM OXIDE 400 MG TABLET (FP) PO ONE (12:31)
[2022-03-22] MEDS: hydrALAZINE HCL 10 MG TABLET PO SCH ×3 (05:45→21:41)
[2022-03-22] MEDS: HEPARIN NA (PORCINE) 5,000 UNITS/ML 1ML VIAL SQ SCH ×3 (05:45→21:41)
[2022-03-22] MEDS: ASPIRIN 81 MG CHEWABLE TABLETS PO SCH (10:14)
[2022-03-22] MEDS: PANTOPRAZOLE SODIUM 40 MG VIAL IVPUSH SCH (10:14)
[2022-03-22] MEDS: guaiFENesin 600 MG TABLET.ER (FP) PO SCH ×2 (10:14→21:41)
[2022-03-22] MEDS: MIDODRINE HCL 2.5 MG TABLET PO SCH ×3 (10:14→17:33)
[2022-03-22] MEDS: SACUBITRIL/VALSARTAN 24 MG-26 MG TABLET PO SCH ×2 (10:14→21:41)
[2022-03-22 13:24] LABS: BASO % 0.4 % (0-2.0); EOS % 1.5 % (0-4.5); HEMATOCRIT 43.7 % (35.4-49); LYMPH % 13.1 % (8-40); MCH 29.5 pg (25.7-33.7); MEAN CELL VOLUME 92.2 fl (80-96); MEAN PLT VOLUME 8.3 fl (7.5-11.1); PLATELET COUNT 406 10^3/uL (134-434); RBC 4.74 M/mm3 (4.00-5.60); RDW 14.4 % (11.9-15.9); WHITE BLOOD COUNT 8.9 K/mm3 (4.0-10.0)
[2022-03-22 13:52] LABS: BLOOD UREA NITROGEN 20.5 mg/dL (7-18); CALCIUM 9.3 mg/dL (8.5-10.1)
[2022-03-22 13:53] LABS: ALBUMIN 2.9 g/dl (3.4-5.0); MAGNESIUM 1.7 mg/dL (1.8-2.4)
[2022-03-22 13:56] LABS: CREATININE 0.7 mg/dL (0.55-1.3); PHOSPHOROUS 4.1 mg/dL (2.5-4.9)
[2022-03-22 13:57] LABS: BILIRUBIN,TOTAL 0.6 mg/dL (0.2-1); TOT PROT 6.3 g/dl (6.4-8.2)
[2022-03-23] MEDS: HEPARIN NA (PORCINE) 5,000 UNITS/ML 1ML VIAL SQ SCH ×2 (06:40→13:34)
[2022-03-23] MEDS: hydrALAZINE HCL 10 MG TABLET PO SCH (06:40)
[2022-03-23] MEDS ORDERED: PANTOPRAZOLE 40 MG TABLET PO SCH (10:00)
[2022-03-23] MEDS: ASPIRIN 81 MG CHEWABLE TABLETS PO SCH (10:20)
[2022-03-23] MEDS: MIDODRINE HCL 2.5 MG TABLET PO SCH ×2 (10:20→13:42)
[2022-03-23] MEDS: guaiFENesin 600 MG TABLET.ER (FP) PO SCH (10:20)
[2022-03-23] MEDS: SACUBITRIL/VALSARTAN 24 MG-26 MG TABLET PO SCH (10:20)
[2022-03-23] MEDS ORDERED: MAGNESIUM OXIDE 400 MG TABLET (FP) PO ONE (12:23)
[2022-03-23 15:46] VITALS: BP 124/71; PULSE 91; RESP 18; TEMP 98.2
== END 2022-03-23 16:26 | disposition home health service (06) | DRG 133 ==
LOC: JER 21:35 → JERBED 22:55 → JICU 03-08 01:19 → J6S 03-17 18:53
PROVIDERS: ADMIT Internal Medicine Pulmonary Disease; ATTEND Internal Medicine
PROC: HZ2ZZZZ Detoxification Services for Substance Abuse Treatment (ICD-10-PCS; 2022-03-07)
PROC: 0BH17EZ Insertion of Endotracheal Airway into Trachea, Via Natural or Artificial Opening (ICD-10-PCS; principal; 2022-03-08)
PROC: 5A1935Z Respiratory Ventilation, Less than 24 Consecutive Hours (ICD-10-PCS; 2022-03-08)
PROC: 05HM33Z Insertion of Infusion Device into Right Internal Jugular Vein, Percutaneous Approach (ICD-10-PCS; 2022-03-08)
PROC: B543ZZA Ultrasonography of Right Jugular Veins, Guidance (ICD-10-PCS; 2022-03-08)
DX: J96.01 Acute respiratory failure with hypoxia (principal); J96.02 Acute respiratory failure with hypercapnia; R00.0 Tachycardia, unspecified; I44.7 Left bundle-branch block, unspecified; E87.29 Other acidosis; D72.829 Elevated white blood cell count, unspecified; J81.1 Chronic pulmonary edema; I73.9 Peripheral vascular disease, unspecified; J18.9 Pneumonia, unspecified organism; N17.9 Acute kidney failure, unspecified; I42.0 Dilated cardiomyopathy; F14.90 Cocaine use, unspecified, uncomplicated; F12.90 Cannabis use, unspecified, uncomplicated; F10.139 Alcohol abuse with withdrawal, unspecified; J44.1 Chronic obstructive pulmonary disease with (acute) exacerbation; I50.23 Acute on chronic systolic (congestive) heart failure; W18.30XA Fall on same level, unspecified, initial encounter; Y92.230 Patient room in hospital as the place of occurrence of the external cause; E87.0 Hyperosmolality and hypernatremia; F41.8 Other specified anxiety disorders; F39 Unspecified mood [affective] disorder; G89.29 Other chronic pain; R57.0 Cardiogenic shock
CPT/HCPCS: 0241U-QW; 36415; 36600; 70450-TC; 71045-TC-FY; 72125-TC; 74018-TC-FY; 76775-TC; 80048; 80053; 80061; 80076; 80307; 81003; 82550; 82553; 82570; 82803; 82962; 83036; 83605; 83735; 83880; 84100; 84156; 84443; 84484; 85025; 85027; 85610; 85730; 87040; 87086; 87899; 93005; 93010; 93306-TC; 94010; 94640; 97116-GP; 97162-GP; 99285-25; J1644